=== PATIENT | female | born 1940 | race Caucasian/White ===

== ENCOUNTER 2024-12-13 13:20 | Outpatient (AMB) | payer MEDICARE, SELFPAY ==
--- NOTE | 2024-12-13 13:24 | A.OFFVIS_ITS ---
Vital Signs 12/13/24 13:26 Height 5 ft 1 in Weight 155 lb 6.814 oz BMI 29.4 BP 80/42 L Blood Pressure Location Lt brachial Position Sitting Pulse 90 Pulse Source Pulse Oximeter Pulse Oximetry (%) 93 Oxygen Delivery Method Nasal Cannula Oxygen Flow Rate 4 Intake Visit Reasons: COPD Allergies No Known Allergies Allergy (Verified 12/13/24 13:30) HPI Comments Details: The patient is here for pulmonary evaluation. The patient is a 84 year woman with known history of carcinoid, COPD emphysema, chronic respiratory failure on oxygen who has had multiple bouts of pneumonia. He she was last admitted to [facility] back early November 2024. At that point she did have a CTA which I personally reviewed demonstrating extensive emphysema bilaterally in addition to airspace disease both in the left upper lobe and also left lower lobe. She was treated with antibiotics and she was discharged to rehab. She also had pulmonary nodules largest 1 measuring more than a cm in size. She does have history of carcinoid and she follows closely with oncology and currently on therapy for that. She has not had to know if the nodular densities are carcinoid related. In addition to this the patient does use oxygen. She does use a portable oxygen concentrator that works well for her. She is starting to walk a little bit more but otherwise she has a scooter that she uses to get around. As far as inhalers he has been on Symbicort and Spiriva for a long time. But they seem to be working well for her. She does have a nebulizer which she needs to start using for chest physical therapy and I will provide her with an Acapella valve to help her also with chest PT and mucus clearance to minimize mucus plugging and infections. The patient will have a repeat CT scan to follow-up with the nodular densities in the pneumonia prior to her follow-up. She will start azithromycin 3 times a week for chronic macrolide suppression therapy and if she still congested making mucus she will provide us with a sputum culture. The patient also will get an EKG after a few weeks off the macrolide therapy. [facility] Medical History (Updated 12/13/24 @ 23:47 by Han Turcios MD) Chronic respiratory failure Acute on chronic respiratory failure with hypoxia and hypercapnia COPD (chronic obstructive pulmonary disease) Pneumonia Pulmonary nodule 1 cm or greater in diameter Social History (Updated 12/13/24 @ 13:30 by Sabi Gaines CMA) Patient Tobacco Use Status: Former Tobacco user Review of Systems Const Reports fatigue ENT Reports no additional complaints Card Denies chest pain, Reports dyspnea and Reports dyspnea on exertion Resp Reports cough, Reports dyspnea, Reports dyspnea on exertion and Reports wheezing GI Denies abdominal pain Musc Reports no additional complaints and Reports abnormal gait Skin/Breast Denies rash Neuro Reports abnormal gait Endo Reports fatigue José/Lymph Reports no additional complaints Aller/Immun Reports wheezing Physical Exam Vital Signs: Last Vital Signs Pulse 90 12/13/24 13:26 BP 80/42 L 12/13/24 13:26 Pulse Ox 93 12/13/24 13:26 Oxygen Delivery Method Nasal Cannula 12/13/24 13:26 Oxygen Flow Rate 4 12/13/24 13:26 BMI result Body Mass Index 29.4 Const General: comfortable HEENT Head: Yes normocephalic Neck Neck: Yes supple Chest Chest palpation & inspection: normal inspection of the chest Resp Effort & Inspection: normal respiratory effort and prolonged expiratory phase Auscultation: diminished lung sounds Cardio Heart sounds: S1 normal heart sound present and S2 normal heart sound present GI Palpation (GI): Soft to palpation Skin General skin exam: no rashes or lesions noted Extrem General: Yes clubbing and No cyanosis Results Reviewed Results Reviewed: personally reviewed CTA 11/2024 with extensive emphysema and extensive PNA, multiple nodules, one >1cm Assessment & Plan Assessment & Plan (1) Pulmonary nodule 1 cm or greater in diameter: Code(s): R91.1 - Solitary pulmonary nodule Category: Medical (2) Pneumonia: Code(s): J18.9 - Pneumonia, unspecified organism Category: Medical Qualifiers: Pneumonia type: due to unspecified organism Laterality: left Lung location: unspecified part of lung Qualified Code(s): J18.9 - Pneumonia, unspecified organism (3) COPD (chronic obstructive pulmonary disease): Code(s): J44.9 - Chronic obstructive pulmonary disease, unspecified Category: Medical Qualifiers: COPD type: emphysema Emphysema type: centrilobular Qualified Code(s): J43.2 - Centrilobular emphysema (4) Chronic respiratory failure: Code(s): J96.10 - Chronic respiratory failure, unspecified whether with hypoxia or hypercapnia Category: Medical Qualifiers: Respiratory failure complication: hypoxia and hypercapnia Qualified Code(s): J96.11 - Chronic respiratory failure with hypoxia; J96.12 - Chronic respiratory failure with hypercapnia Plan continue Symbicort and Spiriva MARCIE as needed Start Xopenex nebs BID and followed by CPT with acapella valve CT chest 2 months start Azithromycin MWF EKG Sputum cx F/U 2-3 months Orders: Orders CT chest wo IV con 10 Weeks J18.9 - Pneumonia, unspecified organism, R91.1 - Solitary pulmonary nodule ECG 12 lead EKG Today J44.9 - Chronic obstructive pulmonary disease, unspecified Sputum Cult + Gram stain Today R91.1 - Solitary pulmonary nodule Medications: New levalbuterol HCl 1.25 mg (3 mL) inhalation BID 180 mL 0RF 30 days J44.9 - Chronic obstructive pulmonary disease, unspecified azithromycin Take 1 tablet on Friday/Friday/Friday 250 mg PO 3XW 12 tabs 6RF 28 days K21.9 - Gastro-esophageal reflux disease without esophagitis Coding Level of Care Code New Pt Level 5 (38447) Diagnoses Pulmonary nodule 1 cm or greater in diameter R91.1 Pneumonia of left lung due to infectious organism, unspecified part of lung J18.9 Pneumonia type: due to unspecified organism Laterality: left Lung location: unspecified part of lung Centrilobular emphysema J43.2 COPD type: emphysema Emphysema type: centrilobular Chronic respiratory failure with hypoxia and hypercapnia J96.11; J96.12 Respiratory failure complication: hypoxia and hypercapnia Time Spent (min) 60
[2024-12-13 13:26] VITALS: BP 80/42; PULSE 90; O2SAT 93; BMI 29.4
== END 2024-12-13 14:09 | disposition home or self-care (01) ==
LOC: HO.HPS 13:20
PROVIDERS: PCP Family Medicine; Referring Provider Family Medicine; Visit Provider Hospitalist
DX: J43.2 Centrilobular emphysema (principal); R91.1 Solitary pulmonary nodule; J18.9 Pneumonia, unspecified organism; J96.11 Chronic respiratory failure with hypoxia; J96.12 Chronic respiratory failure with hypercapnia
CPT/HCPCS: 99205

== ENCOUNTER → 2024-12-13 13:20 | Outpatient (BNVA) | payer MEDICARE, SELFPAY | PROVIDERS: PCP Family Medicine; Referring Provider Family Medicine; Visit Provider Hospitalist | DX: J43.2 Centrilobular emphysema (principal); R91.1 Solitary pulmonary nodule; J18.9 Pneumonia, unspecified organism; J96.11 Chronic respiratory failure with hypoxia; J96.12 Chronic respiratory failure with hypercapnia; K21.9 Gastro-esophageal reflux disease without esophagitis; Z99.81 Dependence on supplemental oxygen | CPT/HCPCS: 99202 ==

== ENCOUNTER 2025-02-28 14:40 | Outpatient (AMB) | payer MEDICARE, SELFPAY ==
[2025-02-28 14:43] VITALS: BP 120/60; PULSE 87; O2SAT 94
--- NOTE | 2025-02-28 14:43 | A.OFFVIS_ITS ---
Vital Signs 02/28/25 14:43 Height 5 ft 1 in BMI Reason not done Patient refused/unable BP 120/60 Blood Pressure Location Lt brachial Position Sitting Pulse 87 Pulse Source Pulse Oximeter Pulse Oximetry (%) 94 Oxygen Delivery Method Nasal Cannula Oxygen Flow Rate 3 Intake Visit Reasons: COPD Allergies No Known Allergies Allergy (Verified 02/28/25 14:46) HPI Comments Details: The patient is a 84 year woman with known history of carcinoid, COPD emphysema, chronic respiratory failure on oxygen who has had multiple bouts of pneumonia. He she was last admitted to [facility] back early November 2024. At that point she did have a CTA which I personally reviewed demonstrating extensive emphysema bilaterally in addition to airspace disease both in the left upper lobe and also left lower lobe. She was treated with antibiotics and she was discharged to rehab. She also had pulmonary nodules largest 1 measuring more than a cm in size. She does have history of carcinoid and she follows closely with oncology and currently on therapy for that. She has not had to know if the nodular densities are carcinoid related. In addition to this the patient does use oxygen. She does use a portable oxygen concentrator that works well for her. She is starting to walk a little bit more but otherwise she has a scooter that she uses to get around. As far as inhalers he has been on Symbicort and Spiriva for a long time. But they seem to be working well for her. She does have a nebulizer which she needs to start using for chest physical therapy and I will provide her with an Acapella valve to help her also with chest PT and mucus clearance to minimize mucus plugging and infections. The patient will have a repeat CT scan to follow-up with the nodular densities in the pneumonia prior to her follow-up. She will start azithromycin 3 times a week for chronic macrolide suppression therapy and if she still congested making mucus she will provide us with a sputum culture. The patient also will get an EKG after a few weeks off the macrolide therapy. 02/28/2025 the patient is here for a pulmonary follow-up visit. Overall she is doing better. Her cough is significantly improved. She has been tolerating the azithromycin 3 times a week. She is coming up to the another prescription this month and she can stop it after that. She will continue with respiratory medicines. If she notices the respiratory symptoms worsens she can always call me and I can send her a new script. The patient now is feeling little bit better so will go ahead and request pulmonary function studies to assess her lung capacity. As far as imaging studies she does not have to get any imaging study till the spring when she needs another CAT scan to follow up her pulmonary nodules with a history of carcinoid. Will follow-up after her PFTs in 3-4 months if she has any issues prior to that she will call for an earlier assessment. [facility] Medical History (Updated 12/13/24 @ 23:47 by Han Turcios MD) Chronic respiratory failure Acute on chronic respiratory failure with hypoxia and hypercapnia COPD (chronic obstructive pulmonary disease) Pneumonia Pulmonary nodule 1 cm or greater in diameter Social History (Updated 12/13/24 @ 13:30 by Sabi Gaines CMA) Patient Tobacco Use Status: Former Tobacco user Review of Systems Const Reports fatigue ENT Reports no additional complaints Card Denies chest pain, Reports dyspnea and Reports dyspnea on exertion Resp Reports cough, Reports dyspnea, Reports dyspnea on exertion and Reports wheezing GI Denies abdominal pain Musc Reports no additional complaints and Reports abnormal gait Skin/Breast Denies rash Neuro Reports abnormal gait Endo Reports fatigue José/Lymph Reports no additional complaints Aller/Immun Reports wheezing Physical Exam Vital Signs: Last Vital Signs Pulse 87 02/28/25 14:43 BP 120/60 02/28/25 14:43 Pulse Ox 94 02/28/25 14:43 Oxygen Delivery Method Nasal Cannula 02/28/25 14:43 Oxygen Flow Rate 3 02/28/25 14:43 Const General: comfortable HEENT Head: Yes normocephalic Neck Neck: Yes supple Chest Chest palpation & inspection: normal inspection of the chest Resp Effort & Inspection: normal respiratory effort Auscultation: diminished lung sounds Cardio Heart sounds: S1 normal heart sound present and S2 normal heart sound present GI Palpation (GI): Soft to palpation Skin General skin exam: no rashes or lesions noted Extrem General: Yes clubbing and No cyanosis Assessment & Plan Assessment & Plan (1) Pulmonary nodule 1 cm or greater in diameter: Code(s): R91.1 - Solitary pulmonary nodule Category: Medical (2) Pneumonia: Code(s): J18.9 - Pneumonia, unspecified organism Category: Medical Qualifiers: Laterality: left Lung location: unspecified part of lung Pneumonia type: due to unspecified organism Qualified Code(s): J18.9 - Pneumonia, unspecified organism (3) COPD (chronic obstructive pulmonary disease): Code(s): J44.9 - Chronic obstructive pulmonary disease, unspecified Category: Medical Qualifiers: COPD type: emphysema Emphysema type: centrilobular Qualified Code(s): J43.2 - Centrilobular emphysema (4) Chronic respiratory failure: Code(s): J96.10 - Chronic respiratory failure, unspecified whether with hypoxia or hypercapnia Category: Medical Qualifiers: Respiratory failure complication: hypoxia and hypercapnia Qualified Code(s): J96.11 - Chronic respiratory failure with hypoxia; J96.12 - Chronic respiratory failure with hypercapnia Plan continue Symbicort and Spiriva MARCIE as needed Xopenex nebs BID and followed by CPT with acapella valve CT chest 12/2025 Azithromycin MWF complete F/U 64 months Orders: Orders PFT pulmonary function test 2 Months J43.2 - Centrilobular emphysema Coding Level of Care Code Est Pt Level 4 (89274) Complex EM visit Add On G2211 Diagnoses Pulmonary nodule 1 cm or greater in diameter R91.1 Pneumonia of left lung due to infectious organism, unspecified part of lung J18.9 Laterality: left Lung location: unspecified part of lung Pneumonia type: due to unspecified organism Centrilobular emphysema J43.2 COPD type: emphysema Emphysema type: centrilobular Chronic respiratory failure with hypoxia and hypercapnia J96.11; J96.12 Respiratory failure complication: hypoxia and hypercapnia Time Spent (min) 16
--- OUTSIDE RECORDS SUMMARY | 2025-02-28 15:57 | XMS_ITS | Data Portability ---
Author Organization [place] - [facility], [employer] Address [address] [place] [address] Care Team Providers Care Performance Improvement Manager Name Role Phone EVELIN MAJANO Primary Care Provider Assessment Encounter Date Assessment Date Assessment LastModified by Organization Details LastModified Time 09/20/2024 09/20/2024 Assessment - Possible tendon tear in the right ankle, not suspected to be fractured. - Elevated blood pressure, possibly related to pain. - Heartburn with chest pain, differential diagnosis includes potential cardiac issues. - Breathing difficulties, warranting further evaluation. Plan - Continue applying ice packs to the ankle at night to manage swelling and discomfort. Monitor the condition and report any significant changes. - Proceed with blood work to evaluate current health status, particularly in relation to blood sugar levels. - Transition to taking Mounjaro instead of Trulicity for diabetes management, as Mounjaro is considered a better option. - Schedule a follow-up appointment in one month to review blood work results and assess overall health progress. - Provide the name of the competitive intelligence analyst to the office for referral purposes once it is remembered. Appointments - Follow-up appointment in one month to review blood work results. [email or web address] Not available 09/20/2024 15:49:53 11/11/2024 11/11/2024 16 minutes spent discussing advanced care planning, including time spent with paperwork and documentation related to MOLST, Health Care Proxy, discussion of palliative and end of life wishes. Assessment - Esophageal strictures may require dilation, as indicated by dysphagia with certain foods. - Possible venous insufficiency contributing to purple discoloration and numbness in toes and ankles. Plan - Maintain current dose of injectable medication for now, as it is working well and to avoid potential side effects. Consider increasing the dose in the future if necessary. - Referral to Dr. Adorno for vision evaluation. Schedule an appointment with Dr. Adorno, located on [facility], for vision-related concerns. No referral needed with current insurance. - Ensure follow-up with Dr. Leyva regarding esophagus issues. There may be a need for another endoscopy to address strictures. - Schedule a four-month follow-up appointment for annual evaluation. - Provide healthcare proxy form for review and update. Consider updating the healthcare proxy to ensure appropriate representation. Appointments - Appointment with oncologist at the beginning of next month - Follow-up with Dennise in November - Referral to Dr. Adorno on [facility] for vision evaluation - Follow-up appointment with md in four months for annual check-up [email or web address] Not available 11/11/2024 13:09:16 12/08/2024 12/08/2024 Assessment - Blood pressure is well controlled with current medication and salt intake. - Weight loss potentially related to swallowing difficulties and recent medication change to Mounjaro. - Swallowing issues possibly due to esophageal stricture, may require endoscopic intervention. - Recent pneumonia and COPD exacerbation, with ongoing cough and mucus production. - Anemia being managed with B12 shots and potential need for further intervention. - Possible urinary tract infection, monitoring with cranberry pills. Plan - Schedule an appointment for another endoscopy to address swallowing issues and potential esophageal stricture. - Monitor weight loss and ensure adequate nutrition and hydration, especially considering swallowing difficulties. Encourage intake of liquids and foods that are easier to swallow. - Use cranberry pills as a preventive measure for urinary tract infections, avoiding cranberry juice due to its sugar content. - Monitor breathing and mucus production, particularly in the mornings and evenings, to assess recovery from pneumonia and COPD exacerbation. - Follow up with the competitive intelligence analyst to address any ongoing respiratory concerns and ensure proper management of breathing issues. Appointments - Follow-up appointment with competitive intelligence analyst on December 09, 2024 - B12 shot appointment with oncology on December 09, 2024 [email or web address] Not available 12/08/2024 09:31:46 12/16/2024 12/16/2024 This visit is being performed by Emerald Alanis RN under the direct supervision of Evelin Majano DO and they are physically present in the office and available for immediate consultation. The treatment plan was determined by the supervising provider. Assessment -EKG performed in office today, NSR per Dr Majano, will fax results to Pulm as they are ordering priovider Appointments - Appointment with pulmonology on Friday [email or web address] Not available 12/16/2024 14:58:24 02/03/2025 02/03/2025 The patient was advised to continue a healthy diet and exercise regularly. Preventative care discussed in detail. Eight minutes spent on each counselling about depression, alcohol, obesity, and cardiovascular health. Further preventative care counselling discussed as documented below. 8 Minutes spent on counseling primary and/or secondary prevention of cardiovascular disease, including aspirin use if necessary, and healthy diet. Documented 5 A s approach. (obesity diagnosis added to A/P) 8 Minutes spent on intensive obesity counseling, including review of measured BMI, and nutritional assessment with behavioral therapy to promote weight loss. Documented 5 A s approach. (Not for an established diagnosis - this is primary prevention counseling services) Preventative counseling performed in absence of a diagnosis or problem for appropriate diet and exercise for a total of 8 minutes. Detailed documentation using the 5A s approach. Assessment - Tendonitis in the ankle, likely due to chronic inflammation in the ankle joint. - Weight loss potentially related to the use of Mounjaro medication. - Constipation possibly related to nerve issues associated with metastatic cancer, but no bowel obstruction present. Plan - Recommend taking Senna as needed to help with constipation. Senna is suggested to increase muscle tone and movements in the gut, aiding in stool passage. It is advised to take two tablets daily alongside prune juice to evaluate its effectiveness. - Continue daily consumption of prune juice to assist with bowel movements. - Follow up with Dr. Bowden for scheduled CAT scans and blood work to monitor any potential cancer-related issues contributing to weight loss. Prescription - Senna, two tablets daily, as needed for constipation. Appointments - Follow-up appointment with Dr. Bowden for CT scans and blood work [email or web address] Not available 02/03/2025 12:47:27 Plan of Treatment Reminders Order Date Submit Date Provider Last Modified By Organization Details Last Modified Time Details Appointments FOLLOW UP 2024 01:00P M Evelin Majano, DO Not available Not available Not available Lab BNP (B-type natriuret ic peptide), serum or plasma 2024 025 JAYCEE [facility], [address] [facility], [place], [address], 09/22/2024 16:06:49 HbA1c (hemoglob in A1c), blood 2024 025 [facility], [address], [place], [address], 09/22/2024 16:06:48 CMP, serum or plasma 2024 025 [facility], [address], [place], [address], 09/22/2024 16:06:47 CBC w/ auto diff 2024 025 [facility], [address] [facility] [place], [address], 09/22/2024 16:06:46 lipid panel, serum 2024 025 [facility], [address], [place], [address], 09/22/2024 16:06:48 iron + TIBC + ferritin, serum 2024 025 [facility], [address], [place], [address], 09/22/2024 16:06:46 Referral ophthalmo logist referral - needs yearly diabetic eye exams 2024 025 [email or web address] Fredis Adorno MD, [address] [place], [address], 11/16/2024 19:34:41 Procedures None recorded. Surgeries None recorded. Imaging electroca rdiogram 2024 025 [email or web address] Main Office, [address] [place] [address], [address], [place], [address], 12/18/2024 14:58:22 Medication Orders senna 8.6 mg tablet 2024 025 [id number], [address] [place] [address], [id number], 02/03/2025 12:46:36 tramadol 50 mg tablet 2024 025 JAYCEE [id number], [address], [place], [id number], 02/17/2025 05:56:29 Patient TargetsNo targets recorded. Patient InstructionsNo instructions recorded. Reason for Referral Floor Layer Referral for Uncontrolled type 2 diabetes mellitus needs yearly diabetic eye exams Referring Physician: Evelin Majano, Family Medicine, Encounter Date: 11/11/2024 Results Created Date Observation Date Name Description Value Unit Range Abnormal Flag Note LastModifiedBy Organization Detail LastModifiedTime 09/21/1909/22/2024 FE+TI BC+FE R iron bind.cap.(TI BC) 465 ug/dL 250-45 0 above high normal Not Available [facility] ([facility]) [address] [place], [address], 09/22/2024 16:06:46 09/21/19 25 09/22/2024 FE+TI BC+FE R UIBC 422 ug/dL 118-36 9 above high normal Not Available [facility] ([facility]) [address] [place], [address], 09/22/2024 16:06:46 09/21/19 25 09/22/2024 FE+TI BC+FE R iron 43 ug/dL 27-139 normal Not Available [facility] ([facility]) [address] [place], [address], 09/22/2024 16:06:46 09/21/19 25 09/22/2024 FE+TI BC+FE R iron saturation 9 % 15-55 alert low Not Available [facility]) [address] [place], [address], 09/22/2024 16:06:46 09/21/19 25 09/22/2024 FE+TI BC+FE R ferritin 23 NG/mL 15-150 normal Not Available [facility] ([facility]) [address] [place], [address], 09/22/2024 16:06:46 09/21/19 25 09/22/2024 CBC WITH DIFFE RENTI AL/PL ATELE T WBC 6.7 x10e3 /uL 3.4-10 .8 normal Not Available [facility] ([facility]) [address] [place], [address], 09/22/2024 16:06:46 09/21/19 25 09/22/2024 CBC WITH DIFFE RENTI AL/PL ATELE T RBC 3.14 x10e6 /uL 3.77-5 .28 below low normal Not Available [facility] ([facility]) [address] [place], [address], 09/22/2024 16:06:46 09/21/19 25 09/22/2024 CBC WITH DIFFE RENTI AL/PL ATELE T hemoglobin 8.7 g/dL 11.1-1 5.9 below low normal Not Available [facility] ([facility]) [address] [place], [address], 09/22/2024 16:06:46 09/21/19 25 09/22/2024 CBC WITH DIFFE RENTI AL/PL ATELE T hematocrit 28.9 % 34.0-4 6.6 below low normal Not Available [facility] ([facility]) [address] [place], [address], 09/22/2024 16:06:46 09/21/19 25 09/22/2024 CBC WITH DIFFE RENTI AL/PL ATELE T MCV 92 fL 79-97 normal Not Available [facility] ([facility]) [address] [place], [address], 09/22/2024 16:06:46 09/21/19 25 09/22/2024 CBC WITH DIFFE RENTI AL/PL ATELE T MCH 27.7 pg 26.6-3 3.0 normal Not Available [facility] ([facility]) [address] [place], [address], 09/22/2024 16:06:46 09/21/19 25 09/22/2024 CBC WITH DIFFE RENTI AL/PL ATELE T MCHC 30.1 g/dL 31.5-3 5.7 below low normal Not Available [facility] ([facility]) [address] [place], [address], 09/22/2024 16:06:46 09/21/19 25 09/22/2024 CBC WITH DIFFE RENTI AL/PL ATELE T RDW 16.8 % 11.7-1 5.4 above high normal Not Available [facility] ([facility]) [address] [place], [address], 09/22/2024 16:06:46 09/21/19 25 09/22/2024 CBC WITH DIFFE RENTI AL/PL ATELE T platelets 223 x10e3 /uL 150-45 0 normal Not Available [facility] ([facility]) [address] [place], [address], 09/22/2024 16:06:46 09/21/19 25 09/22/2024 CBC WITH DIFFE RENTI AL/PL ATELE T neutrophils 62 % not estab. normal Not Available [facility] ([facility]) [address] [place], [address], 09/22/2024 16:06:46 09/21/19 25 09/22/2024 CBC WITH DIFFE RENTI AL/PL ATELE T lymphs 26 % not estab. normal Not Available [facility] ([facility]) [address] [place], [address], 09/22/2024 16:06:46 09/21/19 25 09/22/2024 CBC WITH DIFFE RENTI AL/PL ATELE T monocytes 10 % not estab. normal Not Available [facility] ([facility]) [address] [place], [address], 09/22/2024 16:06:46 09/21/19 25 09/22/2024 CBC WITH DIFFE RENTI AL/PL ATELE T eos 1 % not estab. normal Not Available [facility] ([facility]) [address] [place], [address], 09/22/2024 16:06:46 09/21/19 25 09/22/2024 CBC WITH DIFFE RENTI AL/PL ATELE T basos 0 % not estab. normal Not Available [facility] ([facility]) [address] [facility], [place], [address], 09/22/2024 16:06:46 09/21/19 25 09/22/2024 CBC WITH DIFFE RENTI AL/PL ATELE T immature cells LEAD SIMULATION MODELING ENGINEER Not Available [facility] ([facility]) [address] [place], [address], 09/22/2024 16:06:46 09/21/19 25 09/22/2024 CBC WITH DIFFE RENTI AL/PL ATELE T neutrophils (absolute) 4.2 x10e3 /uL 1.4-7. 0 normal Not Available [facility] ([facility]) [address] [place], [address], 09/22/2024 16:06:46 09/21/19 25 09/22/2024 CBC WITH DIFFE RENTI AL/PL ATELE T lymphs (absolute) 1.7 x10e3 /uL 0.7-3. 1 normal Not Available [facility] ([facility]) [address] [place], [address], 09/22/2024 16:06:46 09/21/19 25 09/22/2024 CBC WITH DIFFE RENTI AL/PL ATELE T monocytes(ab solute) 0.6 x10e3 /uL 0.1-0. 9 normal Not Available [facility] ([facility]) [address] [facility], [place], [address], 09/22/2024 16:06:46 09/21/19 25 09/22/2024 CBC WITH DIFFE RENTI AL/PL ATELE T eos (absolute) 0.1 x10e3 /uL 0.0-0. 4 normal Not Available [facility] ([facility]) [address] [facility], [place], [address], 09/22/2024 16:06:46 09/21/19 25 09/22/2024 CBC WITH DIFFE RENTI AL/PL ATELE T baso (absolute) 0.0 x10e3 /uL 0.0-0. 2 normal Not Available [facility] ([facility]) [address] [facility], [place], [address], 09/22/2024 16:06:46 09/21/19 25 09/22/2024 CBC WITH DIFFE RENTI AL/PL ATELE T immature granulocytes 1 % not estab. Not Available [facility] ([facility]) [address] [facility], [place], [address], 09/22/2024 16:06:46 09/21/19 25 09/22/2024 CBC WITH DIFFE RENTI AL/PL ATELE T immature grans (abs) 0.0 x10e3 /uL 0.0-0. 1 Not Available [facility] ([facility]) [address] [facility], [place], [address], 09/22/2024 16:06:46 09/21/19 25 09/22/2024 CBC WITH DIFFE RENTI AL/PL ATELE T NRBC LEAD SIMULATION MODELING ENGINEER Not Available [facility] ([facility]) [address] [facility], [place], [address], 09/22/2024 16:06:46 09/21/19 25 09/22/2024 CBC WITH DIFFE RENTI AL/PL ATELE T hematology comments: LEAD SIMULATION MODELING ENGINEER Not Available [facility] ([facility]) [address] [facility] [place], [address], 09/22/2024 16:06:46 09/21/19 25 09/22/2024 COMP. METAB OLIC PANEL (14) glucose 92 mg/dL 70-99 normal Not Available [facility] ([facility]) [address] [facility] [place], [address], 09/22/2024 16:06:47 09/21/19 25 09/22/2024 COMP. METAB OLIC PANEL (14) BUN 28 mg/dL 8-27 above high normal Not Available [facility] ([facility]) [address] [facility] [place], [address], 09/22/2024 16:06:47 09/21/19 25 09/22/2024 COMP. METAB OLIC PANEL (14) creatinine 1.00 mg/dL 0.57-1 .00 normal Not Available [facility] ([facility]) [address] [facility] [place], [address], 09/22/2024 16:06:47 09/21/19 25 09/22/2024 COMP. METAB OLIC PANEL (14) eGFR 56 mL/mi n/1.7 3 >59 below low normal Not Available [facility] ([facility]) [address] [place], [address], 09/22/2024 16:06:47 09/21/19 25 09/22/2024 COMP. METAB OLIC PANEL (14) BUN/creatini ne ratio 28 12-28 normal Not Available [facility] ([facility]) [address] [place], [address], 09/22/2024 16:06:47 09/21/19 25 09/22/2024 COMP. METAB OLIC PANEL (14) sodium 148 mmol/ L 134-14 4 above high normal Not Available [facility] ([facility]) [address] [place], [address], 09/22/2024 16:06:47 09/21/19 25 09/22/2024 COMP. METAB OLIC PANEL (14) potassium 4.2 mmol/ L 3.5-5. 2 normal Not Available [facility] ([facility]) [address] [place], [address], 09/22/2024 16:06:47 09/21/19 25 09/22/2024 COMP. METAB OLIC PANEL (14) chloride 108 mmol/ L 96-106 above high normal Not Available [facility] ([facility]) [address] [place], [address], 09/22/2024 16:06:47 09/21/19 25 09/22/2024 COMP. METAB OLIC PANEL (14) carbon dioxide, total 22 mmol/ L 20-29 normal Not Available [facility] ([facility]) [address] [facility] [place], [address], 09/22/2024 16:06:47 09/21/19 25 09/22/2024 COMP. METAB OLIC PANEL (14) calcium 9.9 mg/dL 8.7-10 .3 normal Not Available [facility] ([facility]) [address] [facility] [place], [address], 09/22/2024 16:06:47 09/21/19 25 09/22/2024 COMP. METAB OLIC PANEL (14) protein, total 6.5 g/dL 6.0-8. 5 normal Not Available [facility] ([facility]) [address] [facility] [place], [address], 09/22/2024 16:06:47 09/21/19 25 09/22/2024 COMP. METAB OLIC PANEL (14) albumin 4.3 g/dL 3.7-4. 7 normal Not Available [facility] ([facility]) [address] [facility] [place], [address], 09/22/2024 16:06:47 09/21/19 25 09/22/2024 COMP. METAB OLIC PANEL (14) globulin, total 2.2 g/dL 1.5-4. 5 Not Available [facility] ([facility]) [address] [facility] [place], [address], 09/22/2024 16:06:47 09/21/19 25 09/22/2024 COMP. METAB OLIC PANEL (14) bilirubin, total 0.3 mg/dL 0.0-1. 2 normal Not Available [facility] ([facility]) [address] [facility] [place], [address], 09/22/2024 16:06:47 09/21/19 25 09/22/2024 COMP. METAB OLIC PANEL (14) alkaline phosphatase 106 IU/L 44-121 normal Not Available [facility] [address] [facility] [place], [address], 09/22/2024 16:06:47 09/21/19 25 09/22/2024 COMP. METAB OLIC PANEL (14) AST (SGOT) 16 IU/L 0-40 normal Not Available [facility] ([facility]) [address] [facility] [place], [address], 09/22/2024 16:06:47 09/21/19 25 09/22/2024 COMP. METAB OLIC PANEL (14) ALT (SGPT) 10 IU/L 0-32 normal Not Available [facility] ([facility]) [address] [facility] [place], [address], 09/22/2024 16:06:47 12/17/19 25 elect rocar diogr am No observ ation record ed. [email or web address] Not Available 2024 12:45:02 12/19/19 25 elect rocar diogr am No observ ation record ed. [email or web address] Main Office [address] [place] [address] [address], [place], [address], 12/18/2024 14:58:20 Result Notes None recorded. 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 Evelin Majano, [address], [place] [address], [place], [place], 1, [place] [facility] 09:44:39 History of pulmonary embolus 664646844 Active 2021 Evelin Majano [address], [place] [address], [place] g[place], 1, [place] [facility] 09:44:41 Type 2 diabetes mellitus without complicatio n 004175411 Active 2021 Patrick Santa null, [place] [facility] 10:14:47 Tobacco dependence in remission 949972602 Active 2021 Evelin Majano [address], [place] [address], [place] gonzalez [place], 1, [place] [facility] 10:29:10 Pain of right shoulder joint 4096173842339 9100 Active 2021 Evelin Majano [address], [place] [address], [place] gonz[place], 1, [place] [facility] 10:29:12 Mixed hyperlipide trudy 782222888 Active 2021 Evelin Majano [address], [facility] [address], [place] gonz[place], 1, [place] [facility] 2 10:29:14 Urge incontinenc e of urine 17139180 Active 2021 Evelin Majano [address], [facility] [address], [place] gonzalez [place], 1, [place] [facility] 2 10:29:17 Chronic hypoxemic respiratory failure 396773707 Active 2021 Evelin Majano [address], [facility] [address], [place], [address], [place] [facility] 2 10:29:38 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 Evelin Majano DO [address] [place] [address] [address], [place], [address], [place] [facility] 11:56:29 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 Evelin Majano DO [address] [place] [address] [address], [place], [address], [place] [facility] 2 11:52:21 Severe chronic obstructive pulmonary disease 622838194 Active 2021 Evelin Majano DO [address] [place] [address] [address], [place], [address], [place] [facility] 2 11:52:22 Uncontrolle d type 2 diabetes mellitus 603146328 Active 2024 Evelin Majano DO [address] [place] [address] [address], [place], [place], [address], [place] [facility] 5 12:57:44 Community acquired pneumonia 810356938 Active 2024 Aliyah Clubb, LEAD SIMULATION MODELING ENGINEER [address] [place] [address] [address], [place] gonz[place], [place], [address], [place] [facility] 09:21:13 Dysphagia 94361213 Active 2024 Aliyah Clubb, LEAD SIMULATION MODELING ENGINEER [address] [place] [address] [address], [place] g[place], [place], [address], [place] [facility] 09:21:36 Nutritional anemia 78293697 Active 2024 Aliyah Clubb, LEAD SIMULATION MODELING ENGINEER [address] [place] [address] [address], [place] g[place], [place], [address], [place] [facility] 09:22:05 Problem Notes None recorded. Procedures Surgical History Date Name Laterality Status Provider Name and Address Organization Details Recorded Time 3 Shave Biopsy completed Evelin Majano DO [address] [facility], [facility] [address], [place], [address], [place] [facility] 04/14/2023 12:04:04 3 Cryosurgery Warts/Skin Tags completed Evelinjemma Majano, DO [address] [facility] [address], [place], [address], [place] [facility] 12/21/2022 17:14:53 1 Date of Last Colonoscopy completed Sherri Prieto [place] [facility] 01/28/2025 10:52:25 1 Colonoscopy completed [facility] 01/28/2025 10:52:36 Imaging Results None recorded. Procedure Notes None recorded. Medical Equipment None Reported. Allergies No known drug allergies Medications Name Sig Start Date Stop Date Status Note LastModified by Organization Details LastModified Time lidocaine 2% mylanta TAKE 10CC BY MOUTH THREE TIMES DAILY BEFORE MEAL AND AT BEDTIME FOR 7 DAYS 07/13 completed Not Available Not Available Not Available metformin 500 mg tablet Oral for 90 active Not Available Not Available No t Available albuterol sulfate 0.63 mg/3 mL solution for nebulizat ion active Not Available Not Available Not Available albuterol sulfate 2.5 mg/3 mL (0.083 %) solution for nebulizat ion Inhale 3 mL 3 times a day by nebuliza tion route as needed for 30 days. 09/16 completed Not Available Not Available Not Available azithromy marvin 250 mg tablet TAKE 1 TABLET BY MOUTH DAILY FOR 3 DAYS active Not Available Not Available No t Available pravastat in 40 mg tablet TAKE 1 TABLET BY MOUTH DAILY AT BEDTIME active Not Available Not Available No t Available senna 8.6 mg tablet TAKE 2 TABLETS BY MOUTH EVERY DAY active Not Available Not Available No t Available FreeStyle Lancets 28 gauge USE DIRECTED TO CHECK BLOOD SUGAR IN THE AM AND BEFORE MEALS FOUR TIMES DAILY active Not Available Not Available No t Available prednison e 20 mg tablet TAKE 2 TABLETS BY MOUTH DAILY FOR 3 DAYS 12/08 completed Not Available Not Available Not Available alendrona te 70 mg tablet Oral for 84 active Not Available Not Available No t Available dexametha sone 6 mg tablet TAKE 1 TABLET BY MOUTH TWICE DAILY FOR 3 DAYS 09/16 completed Not Available Not Available Not Available aspirin 81 mg tablet,de layed release Take 1 tablet every day by oral route. active Not Available Not Available No t Available tramadol 50 mg tablet Take 1 tablet twice a day by oral route as needed for 7 days. 02/17 completed 12/03/19 Tramadol Hcl 50 Mg [id number] 7 De Sin Not Available Not Available Not Available oxycodone -acetamin ophen 5 mg-325 mg tablet TAKE 1 TABLET BY MOUTH EVERY 4 HOURS NEEDED FOR PAIN 05/04 completed Not Available Not Available Not Available famotidin e 20 mg tablet TAKE 1 TABLET BY MOUTH DAILY AT BEDTIME 09/16 completed Not Available Not Available Not Available magnesium oxide 400 mg (241.3 mg magnesium ) tablet TAKE 1 TABLET BY MOUTH DAILY FOR 7 DAYS 09/10 completed Not Available Not Available Not Available pantopraz ole 40 mg tablet,de layed release TAKE 1 TABLET BY MOUTH EVERY DAY active Not Available Not Available No t Available lisinopri l 10 mg tablet TAKE 1 TABLET BY MOUTH EVERY DAY 01/15 completed Not Available Not Available Not Available loratadin e 5 mg-pseudo ephedrine ER 120 mg tablet,ex tended release,1 2hr Take 1 tablet every 12 hours by oral route for 30 days. 01/16 completed Not Available Not Available Not Available omeprazol e 20 mg capsule,d elayed release TAKE 1 CAPSULE BY MOUTH TWICE DAILY 08/05 completed Not Available Not Available Not Available levalbute rol 1.25 mg/3 mL solution for nebulizat ion INHALE 3ML TWICE DAILY FOR 30 DAYS 02/03 completed Not Available Not Available Not Available cefuroxim e axetil 500 mg tablet 09/10 completed Not Available Not Available Not Available cefdinir 300 mg capsule TAKE 1 CAPSULE BY MOUTH EVERY 12 HOURS FOR 3 DAYS 12/08 completed Not Available Not Available Not Available fluticaso ne propionat e 50 mcg/actua tion nasal spray,andi pension SHAKE LIQUID AND USE 1 SPRAY IN EACH NOSTRIL TWICE DAILY NEEDED FOR CONGESTI ON 09/16 completed Not Available Not Available Not Available lisinopri l 2.5 mg tablet Oral for 76 09/09 completed Not Available Not Available Not Available loratadin e 10 mg tablet TAKE 1 TABLET BY MOUTH EVERY DAY X 30 DAYS 04/14 completed Not Available Not Available Not Available amoxicill in 875 mg-potass ium clavulana te 125 mg tablet TAKE 1 TABLET BY MOUTH EVERY 12 HOURS FOR 3 DAYS 06/25 completed Not Available Not Available Not Available Ventolin HFA 90 mcg/actua tion aerosol inhaler INHALE 1 PUFF BY MOUTH FOUR TIMES DAILY NEEDED FOR WHEEZING active Not Available Not Available No t Available olmesarta n 40 mg tablet Take 1 tablet every day by oral route. 2024 active Not Available Not Available Not Avai lable azithromy marvin 500 mg tablet TAKE 1 TABLET BY MOUTH EVERY 24 HOURS FOR 2 DAYS 09/10 completed Not Available Not Available Not Available Spiriva with HandiHale r 18 mcg and inhalatio n capsules INHALE THE CONTENTS OF 1 CAPSULE VIA INHALATI ON DEVICE DAILY active Not Available Not Available No t Available albuterol sulfate concentra te 2.5 mg/0.5 mL solution for nebulizat ion Inhale 0.5 mL 3 times a day by nebuliza tion route as needed for 30 days. 09/09 completed Not Available Not Available Not Available Vitamin D3 active Not Available Not Available Not Available Baby Aspirin 01/16 completed Not Available Not Available Not Available Symbicort 160 mcg-4.5 mcg/actua tion HFA aerosol inhaler INHALE 2 PUFFS BY MOUTH TWICE DAILY active Not Available Not Available No t Available Symbicort 80 mcg-4.5 mcg/actua tion HFA aerosol inhaler USE 2 INHALATI ON BY MOUTH TWICE DAILY 03/12 completed Not Available Not Available Not Available peg 3350-elec trolytes 236 gram-22.7 4 gram-6.74 gram-5.86 gram solution TAKE 240ML BY MOUTH EVERY 15 MINUTES 09/10 completed Not Available Not Available Not Available FreeStyle Lite Meter kit USE DIRECTED FOUR TIMES DAILY active Not Available Not Available No t Available FreeStyle Lite Strips USE 1 STRIP FOUR TIMES DAILY active Not Available Not Available No t Available B12 Injectio n 02/03 completed Not Available Not Available Not Available buprenorp naheed 5 mcg/hour weekly transderm al patch Apply 1 patch every week by transder mal route for 28 days. 07/13 completed Please pursue prior auth Not Available Not Available Not Available Eliquis 5 mg tablet TAKE 1 TABLET BY MOUTH TWICE DAILY active Not Available Not Available No t Available Trulicity 0.75 mg/0.5 mL subcutane ous pen injector ADMINIST ER 0.75 MG UNDER THE SKIN 1 TIME WEEKLY 09/20 completed Not Available Not Available Not Available Breo Ellipta 200 mcg-25 mcg/dose powder for inhalatio n 10/30 completed Not Available Not Available Not Available Spiriva Respimat 1.25 mcg/actua tion solution for inhalatio n INHALE 2 PUFFS BY MOUTH EVERY DAY 01/15 completed Not Available Not Available Not Available Readi-Cat 2 2 % (w/v) oral suspensio n REDI CAT FOR CT SCAN TAKE DIRECTED BY OFFICE active Not Available Not Available No t Available Dexcom G6 Fisheries Inspector 08/05 completed Not Available Not Available Not Available albuterol sulf 90 mcg/actua tion breath activated powder inhaler,s ensor Inhale 1 puff 4 times a day by inhalati on route. 12/08 completed Not Available Not Available Not Available mecobalam in (vitamin B12) 10,000 mcg solution for injection Take by injectio n route. active Not Available Not Available No t Available Breztri Aerospher e 160 mcg-9mcg- 4.8mcg/ac tuation HFA aerosol inhaler INHALE 2 PUFFS BY MOUTH TWICE DAILY - RINSE MOUTH AND THROAT AFTER USE 12/16 completed Not Available Not Available Not Available Mounjaro 5 mg/0.5 mL subcutane ous pen injector ADMINIST ER 5 MG UNDER THE SKIN EVERY WEEK active Not Available Not Available No t Available Vitals Date Recorded Body height Oxygen saturation Oxygen saturation in Arterial blood by Pulse oximetry Inhaled oxygen flow rate Heart rate Systolic And Diastolic Provider Name and Address Organization Details Last Updated DateTime 5 154.94 cm 89 % 89 % 2 L/min 74 /min 134/74 mm[Hg] Sherri Galvan [facility] 5 15:13:36 Date Recorded Body height Body mass index (BMI) Body weight Oxygen saturation Oxygen saturation in Arterial blood by Pulse oximetry Inhaled oxygen flow rate Heart rate Systolic And Diastolic Provider Name and Address Organization Details Last Updated DateTime 5 154.94 cm 29.9 kg/m2 31501.5 9 g 96 % 96 % 2 L/min 87 /min 128/72 mm[Hg] Mary daniel [facility] 5 12:41:48 Date Recorded Body height Oxygen saturation Oxygen saturation in Arterial blood by Pulse oximetry Inhaled oxygen flow rate Heart rate Systolic And Diastolic Provider Name and Address Organization Details Last Updated DateTime 5 154.94 cm 97 % 97 % 4 L/min 87 /min 120/66 mm[Hg] Sherri Prieto [facility] 5 08:49:56 Date Recorded Body height Body mass index (BMI) Body weight Oxygen saturation Oxygen saturation in Arterial blood by Pulse oximetry Inhaled oxygen flow rate Heart rate Systolic And Diastolic Provider Name and Address Organization Details Last Updated DateTime 5 154.94 cm 27.8 kg/m2 93413.0 8 g 89 % 89 % 4 L/min 87.01 /min 128/72 mm[Hg] Mary daniel [facility] 5 12:25:51 Social History Question Answer Notes LastModified by [employer]iz[employer] ion Details LastModified Time Tobacco Smoking Status Former Smoker Sherri Prieto [facility] 08/05/2022 09:28:21 Do You Have An Advance Directive? Yes Information not available 12/16/2022 When Did You Quit Smoking? 16+yearssinc elastcigaret te Information not available 03/13/2023 What Was The Date Of Your Most Recent Tobacco Screening? 08/05/2022 Information not available 03/13/2023 How Much Tobacco Do You Smoke? No Information not available 12/16/2022 Sex: Unknown Functional Status Question Answer Note LastModified by Organizat ion Details LastModified Time Do you use any illicit or recreational drugs? No Information not available 01/16/2023 Do you or have you ever used smokeless tobacco? Never used smokeless tobacco Information not available 01/16/2023 Are you currently employed? No Information not available 12/16/2022 Mental Status None recorded. Family History Nothing Reported. Medical History Condition Response Arthritis Y Difficulty Swallowing Y Bladder or Kidney Problems Y Reflux/GERD Y Polyps Y High Cholesterol Y Cancer Y COPD Y Gynecological History Statement/Question Response Date of Last Colonoscopy 02/02/2021 Colonoscopy 02/02/2021 Obstetrics History GPAL:G 0 P 0 0 0 0 Immunizations Vaccine Type Date Status Note Provider Nam andrea and Address Organization Details Recorded Time COVID-19, mRNA, LNP-S, bivalent, PF, 30 mcg/0.3 mL dose 2 completed Sherri Prieto null, [place] [facility] 08/05/2022 09:22:57 Pneumococcal conjugate PCV20, polysaccharide FWB691 conjugate, adjuvant, PF 5 completed Not Available [facility] 02/03/2025 12:16:04 Influenza, high-dose, trivalent, PF 5 completed Sri Veronica null, [place] [facility] 05/02/2022 13:35:29 Tdap 5 completed Sri Veronica [place], [place] [facility] 05/02/2022 13:35:29 Pneumococcal conjugate PCV 13 5 completed Sri Veronica null, [place] [facility] 05/02/2022 13:35:29 Influenza, high-dose, trivalent, PF 4 completed Sri Veronica null, [place] [facility] 05/02/2022 13:35:29 Influenza, adjuvanted, quadrivalent, PF 1 completed Sri Veronica null, [place] [facility] 05/02/2022 13:35:29 COVID-19, mRNA, LNP-S, PF, 30 mcg/0.3 mL dose 1 completed Sri Veronica null, [place] [facility] 05/02/2022 13:35:29 COVID-19, mRNA, LNP-S, PF, 30 mcg/0.3 mL dose 1 completed Sri Veronica null, [place] [facility] 05/02/2022 13:35:29 COVID-19, mRNA, LNP-S, PF, 30 mcg/0.3 mL dose 1 completed Sri Veronica [place], [place] [facility] 05/02/2022 13:35:29 pneumococcal polysaccharide PPV23 7 completed Sri Veronica null, [place] [facility] 05/02/2022 13:35:29 Influenza, high-dose, trivalent, PF 7 completed Srijemma ChampionVeronica null, [place] [facility] 05/02/2022 13:35:29 Influenza, high-dose, trivalent, PF 7 completed Srijemma ChampionVeronica null, [place] [facility] 05/02/2022 13:35:29 Influenza, split virus, quadrivalent, preservative 9 completed Sri Championagne null, [place] [facility] 05/02/2022 13:35:29 zoster live 4 completed Sri Championagne null, [place] [facility] 05/02/2022 13:35:29 Past Encounters Encounter ID Performer Location Encounter Start Date Encounter Closed Date Diagnosis/Indication Diagnosis SNOMED-CT Code Diagnosis ICD10 Code Diagnosis Note [id number] Evelin Majano DO Main Office [address] [place] [address] [address] [place] [address] 09/10/2021 11:25:06 09/10/2021 15:37:29 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 Type 2 loreta betes mellitus without complication 596657668 E11.9 Talked to patient about diet and sugar consumptio n. 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 Likely chronic inflammati on of rotator cuff. Discussed steroid injection but patient would not like one at this time. Tobacco de pendence in remission 659029446 F17.201 patient quit smoking 4 years ago Chronic hy poxemic respiratory failure 678129817 J96.11 [id number] Evelin Majano DO Main Office [address] [place] [address] [address] [place] [address] 05/06/2022 11:08:12 05/06/2022 11:34:44 Chronic hypoxemic respiratory failure 975116106 J96.11 Tobacco de pendence in remission 511886162 F17.201 patient quit smoking 4 years ago Fracture of foot 1183335 5 S92.902D [id number] Jillian Claribel Main Office [address] [place] [address] [address] [place] [address] 06/10/2022 11:37:38 06/10/2022 12:22:26 Adult health examination 319442968 Z00.00 [id number] Evelin Majano DO Main Office [address] [place] [address] [address] [place] [address] 07/05/2022 09:38:48 07/05/2022 09:55:45 Active or passive immunization 952455321 Z23 Pt tolerated injection well, was observed for 15 minutes without complaints [id number] Evelin Majano DO Main Office [address] [place] [address] [address] [place] [address] 08/05/2022 09:20:26 08/05/2022 09:56:42 Chronic hypoxemic respiratory failure 310914034 J96.11 Severe chr onic obstructive pulmonary disease 188248825 J44.9 Type 2 loreta betes mellitus without complication 174458421 E11.65 Talked to patient about diet and sugar consumptio n. A1C 6.6 Neuroendocrine tumor 255 677810 D3A.8 History of pulmonary embolus 125627491 Z86.711 Pain of in tercostal space 371337915 R07.82 Hemoptysis 93676712 R04. 2 Adult [facility] th examination 680179334 Z00.00 Depression screening 171 641029 Z13.31 [id number] Evelin Majano DO Main Office [address] [place], [place] [address] [address] [place] [address] 09/05/2022 10:58:31 09/05/2022 11:28:27 Chronic obstructive pulmonary disease 49679285 J43.2 Essential hypertension 56986766 I10 Type 2 loreta betes mellitus without complication 958070981 E11.65 Talked to patient about diet and sugar consumptio n. A1C 6.6 Severe chr onic obstructive pulmonary disease 716951578 J44.9 [id number] Evelin Majano DO Main Office [address] [place] [address] [address] [place] [address] 10/17/2022 11:23:59 10/17/2022 12:00:56 Nicotine dependence 40817885 F17.200 Severe chr onic obstructive pulmonary disease 091318510 J44.9 Carcinoid tumor 72887904 8 D3A.00 Neuroendocrine tumor 255 632401 D3A.8 [id number] Evelin Majano DO Main Office [address] [place] [address] [place] [address] 12/16/2022 12:59:24 12/16/2022 13:35:42 Essential hypertension 02440794 I10 Seborrheic keratosis 394 647553 L82.1 Carcinoid tumor of lung 938741333 D38.1 Chronic hy poxemic respiratory failure 792082295 J96.11 Severe chr onic obstructive pulmonary disease 165016209 J44.9 Tobacco de pendence in remission 214605419 F17.201 patient quit smoking 4 years ago [id number] Evelin Majano DO Main Office [address] [place] [address] [address] [facility] [place] [address] 01/16/2023 11:46:59 01/16/2023 12:15:03 Chronic hypoxemic respiratory failure 393934747 J96.11 Carcinoid tumor of lung 394463352 D38.1 History of pulmonary embolus 052729311 Z86.711 [id number] Evelin Majano DO Main Office [address] [place] [address] [address] [place] [address] 03/13/2023 11:24:50 03/13/2023 12:02:38 Essential hypertension 23724028 I10 Chronic hy poxemic respiratory failure 359729620 J96.11 Carcinoid tumor of lung 369125241 D38.1 Neuroendocrine tumor 255 374709 D3A.8 Severe chr onic obstructive pulmonary disease 024685925 J44.9 [id number] Evelin Majano DO Main Office [address] [facility],[address] [place] [address] 04/14/2023 11:17:18 04/14/2023 12:13:25 Carcinoid tumor of lung 930964919 D38.1 Chronic hy poxemic respiratory failure 976264684 J96.11 Severe chr onic obstructive pulmonary disease 775207455 J44.9 Tobacco de pendence in remission 044117323 F17.201 patient quit smoking 4 years ago Uncontroll ed type 2 diabetes mellitus 719379884 E11.65 Gastroesop hageal reflux disease 825289895 K21.9 Melanocytic nevus 647659 001 D22.9 [id number] Aliyah Burks, SILVIA Main Office [address] [facility],[address] [place] [address] 06/25/2023 08:55:59 06/25/2023 09:40:26 Hospital inpatient stay within past 30 days 5903959459 106 Z76.89 Hospital records reviewed, medication s reconciled although pt is vague about medication s. Aspiration pneumonia 422 492436 J69.0 Improved. She is at risk of this occurring again and I strongly recommende d a dental soft diet. She has contacted Dr. Leyva's office for appt for dilation of esophageal stricture. Stricture of esophagus 77671295 K22.2 Pt states she is taking famotidine up to TID. Hospital records state she was on pantoprazo le and pt states this is more effective, will send rx. Pt has contacted Dr. Leyva's office for appt. Essential hypertension 98918499 I10 Will have her return in 1 week for nursing visit check. Pt has not taken her olmesartan in 2 days; reports home BPs are WNL but she states her machine is broken. I offered referral to acceal but pt declines. Pt will return in 1 week for nursing check; if still elevated despite compliance to medication s consider adding amlodipine . [id number] Evelin Majano DO Main Office [address] [place] [address],[address] [place] [address] 07/14/2023 12:44:21 07/14/2023 13:25:05 Carcinoid tumor of lung 760706656 D38.1 Chronic hy poxemic respiratory failure 690430454 J96.11 Severe chr onic obstructive pulmonary disease 365157630 J44.9 upcoming pulm appt at [facility] Type 2 loreta betes mellitus without complication 839654306 E11.65 Esophageal dysphagia 408 64986 R13.19 Will call GI for endoscpy [id number] Evelin Majano DO Main Office [address] [place] [address] [address] [place] [address] 09/16/2023 08:35:11 09/16/2023 09:28:04 Stricture of esophagus 88522640 K22.2 Neuroendocrine tumor 255 330842 D3A.8 Uncontroll ed type 2 diabetes mellitus 043855631 E11.65 Chronic hy poxemic respiratory failure 802396263 J96.11 Aspiration pneumonia caused by regurgitated food 30594809 J69.0 Severe chr onic obstructive pulmonary disease 519151357 J43.2 upcoming pulm appt at [facility] [id number] Evelin Majano DO Main Office [address] [place] [address] [address] [place] [address] 01/21/2024 11:08:56 01/21/2024 12:06:40 Carcinoid tumor of lung 685014981 D38.1 Neuroendocrine tumor 255 677325 D3A.8 Severe chr onic obstructive pulmonary disease 133644698 J43.2 upcoming pulm appt at [facility] Type 2 loreta betes mellitus without complication 054132723 E11.65 [id number] GIO CORREIA Main Office [address] [place] [address] [address] [place] [address] 07/13/2024 11:15:59 07/13/2024 11:50:45 End stage chronic obstructive pulmonary disease 260011455 J44.9 Medically necessary for wheelchair [id number] Evelin Majano DO Main Office [address] [place] [address] [address] [place] [address] 09/20/2024 14:53:42 09/20/2024 15:59:16 Strain of muscle and/or tendon of lower leg 798886548 S86.911A Neuroendoc rine neoplasm of lung 035087963 D3A.8 Uncontroll ed type 2 diabetes mellitus 558575455 E11.65 Chronic hy poxemic respiratory failure 636973555 J96.11 Severe chr onic obstructive pulmonary disease 594556570 J44.9 upcoming pulm appt at [facility] Chronic sy stolic heart failure 113946514 I50.22 Dyspnea on exertion 6084 5006 R06.09 [id number] Evelin Majano DO Main Office [address] [place] [address],[address] [place] [address] 11/11/2024 12:34:35 11/11/2024 13:10:57 Carcinoid tumor of lung 321004140 D38.1 Chronic hy poxemic respiratory failure 922416888 J96.11 History of pulmonary embolus 604940939 Z86.711 Severe chr onic obstructive pulmonary disease 895262041 J44.9 Uncontroll ed type 2 diabetes mellitus 588667976 E11.65 Esophageal dysphagia 408 87520 R13.19 Will call GI for endoscpy [id number] Aliyah Burks NP Main Office [address] [place] [address] [address] [place] [address] 12/08/2024 08:43:02 12/08/2024 09:41:40 Post-discharge follow-up 642272902 Z09 Records reviewed, meds reconciled . Community acquired pneumonia 400249261 J18.9 Resolved. Upcoming follow up with pulmonary. Dysphagia 45871523 R13.1 0 Chronic, had EGD last year with tortuous esophagus. Pt states she will call GI on her own. Discussed soft diet although patient is adament about what she is able to eat/not eat. Nutritional anemia 55440 000 D51.9 Follows with heme/onc. States she has appt for B12 injection and labs within a week. [id number] Emerald Alanis RN Main Office [address] [place] [address],[address] [place] [address] 12/16/2024 11:56:56 12/16/2024 15:36:23 Carcinoid tumor of lung 852035984 D38.1 Severe chr onic obstructive pulmonary disease 861777863 J44.9 [id number] Evelin Majano DO Main Office [address] [place] [address],[address] [place] [address] 02/03/2025 12:14:31 02/03/2025 12:55:00 Active or passive immunization 113903357 Z23 Pt tolerated injection well, was observed for 15 minutes without complaints Chronic low back pain 27 6252662 M54.50 General ex amination of patient 673540625 Z00.01 Unintentio nal weight loss 315036990 R63.4 Chronic constipation 236 026930 K59.09 Carcinoid tumor of lung 641970188 D38.1 Health Concerns Section Related Observation LastModified by Organization Detai ls LastModified Time None Recorded Concern Status LastModified by Organization Details LastModified Time None Recorded Advance Directives Directive Y: Payers Insurance Date Sequence Insurance Name Policy Number Policy Villatoro Covered Member ID Villatoro Member ID Guarantor Name 01/30/2025 1 [place]: [employer] Glenny A Vázquez [id number] Glenny A Vázquez 02/27/2025 2 [place] [id number] Glenny A Vázquez [id number] Glenny A Vázquez 01/30/2025 3 [place] Glenny A Vázquez [id number] Glenny A Vázquez Notes Date Note Type Note Provider Name and Address Organization Details Recorded Time 09/20/2024 text/html - Glenny chan, 84-year-old female - Ankle injury from hitting a pothole, resulting in swelling and bruising; able to walk on it, not currently in pain unless pressed - Lower back pain, hip and knee joint pain - Occasional leg weakness causing near falls, ongoing for about a year - Blood pressure concerns, recently reading 149, previously 119 - Occasional chest pains, possibly heartburn, occurring two or three times - Swelling in feet, noted improvement today - Breathing difficulties, worsens with walking - Concerns about blood sugar levels, received a letter about Trulicity payment issues - Taking Mounjaro, advised to continue with it Evelin Kvng Majano, DO [address] [facility] [address], [place], [address], [facility] - [facility] 09/26/2024 20:57:05 11/11/2024 text/html - Glenny chan, 84-year-old female. - Reports sore toes, ankles, back, knees, and hip joints. - Experiences occasional loss of equilibrium but does not fall. - Has been seeing an oncologist and has an upcoming appointment at the beginning of next month. - Currently on an injectable medication, initially started on a low dose, which has been increased once. - Reports difficulty swallowing certain foods, regardless of texture, and has experienced this issue in the past. - Had an endoscopy about a year ago, which revealed esophageal strictures. - Reports numbness and purple discoloration in toes, with numbness also in ankles. - Has an appointment with Dennise in November and saw pulmonology in June. Evelin Majano, [address] [place] [address], [facility] [address], [place], [address], [place] - [facility] 11/11/2024 13:09:49 12/08/2024 text/html She is here for hospital follow up.Admitted to [facility] 11/24/24-11/27/24 with PNA. Nursing f/u on 12/01/24.PNA/COPD: On her baseline 2-3 L o2. Glenny Vázquez, 84-year-old female - Recovering alcoholic, careful with alcohol intake. - Diabetic, experiencing expected numbness and tingling, but no new symptoms. - Fractured ankle a year ago, recent fall on the same ankle. - Started physical therapy, focusing on breathing exercises. - History of low blood pressure episodes, related to salt intake adjustments. - Recent weight loss, approximately 5 pounds in the last month. - Issues with swallowing certain foods, history of esophageal stricture, last endoscopy a year ago. - Recent pneumonia and COPD exacerbation, still coughing up brown mucus. - History of anemia, receiving B12 shots and possibly requiring blood transfusions. - Concerns about potential UTI, taking cranberry pills as a precaution. Aliyah Burks, SILVIA [address] [address], [place], [address], [place] [facility] 12/08/2024 11:25:15 12/16/2024 text/html Glenny Vázquez, 84 years, female - Difficulty walking long distances, requires oxygen support- Trouble swallowing noted by previous healthcare provider- Pain in bones of both legs when touched- Patient presents to office for EKG per pulmonology Evelin Majano, [address] [facility], [facility] [address], [place], [address], [place] [facility] 12/18/2024 14:58:39 02/03/2025 text/html Annual WellnessReported bypatient.Diet and Nutrition:healthy diet Fracture Risk:no history of fractures; no recent explained fracture; no sudden unexplained fractures; no previous musculoskeletal injuries Physical Activity:recent increase in physical activity; good physical condition Additional Lifestyle Factors:no tobacco use; no alcohol intake; stopped drinking alcohol Depression Risk:never feels sad, empty, or tearful; no loss of interest in activities; no significant changes in weight; no sleep disturbances or insomnia; no agitation; no loss of energy; no feelings of worthlessness or guilt; no thoughts of suicide; no history of depression; no history of mood disorders Hearing:no loss of hearing Vision:no vision problems Glenny Vázquez, 84 years, female - Ankle pain and puffiness, not severe, similar to previous ankle issue, possibly tendonitis - Recent weight loss, down to 146 lbs, attributed to bowel movements and Mounjaro medication - Hospitalization a couple of months ago for pneumonia, similar to previous episode - Difficulty with breathing, suspected reaction to nebulizer medication - Missed last oncology appointment due to hospitalization - Potential need for endoscopy to stretch throat, affecting ability to eat - Constipation issues, relieved by prune juice, no bowel obstruction symptoms Evelin Majano, DO [address] [facility] [address], [place], [address], [place] [facility] 02/03/2025 12:49:57 OBGyn Episode No OBEpisode recorded.
== END 2025-02-28 15:21 | disposition home or self-care (01) ==
LOC: HO.HPS 14:40
PROVIDERS: PCP Family Medicine; Visit Provider Hospitalist
DX: R91.1 Solitary pulmonary nodule (principal); J18.9 Pneumonia, unspecified organism; J43.2 Centrilobular emphysema; J96.11 Chronic respiratory failure with hypoxia; J96.12 Chronic respiratory failure with hypercapnia
CPT/HCPCS: 99214; G2211

== ENCOUNTER → 2025-02-28 14:40 | Outpatient (BNVA) | payer MEDICARE, SELFPAY | PROVIDERS: PCP Family Medicine; Visit Provider Hospitalist | DX: R91.1 Solitary pulmonary nodule (principal); J43.2 Centrilobular emphysema; J18.9 Pneumonia, unspecified organism; J96.11 Chronic respiratory failure with hypoxia; J96.12 Chronic respiratory failure with hypercapnia | CPT/HCPCS: 99212 ==

== ENCOUNTER 2025-05-13 13:01 | Outpatient (REF) | payer MEDICARE, SELFPAY ==
--- NOTE | 2025-05-13 13:06 | PFT_ITS ---
Flows: FEV1: 68 % of predicted at 1.15 L FVC: 118 % of predicted at 2.60 L FEV1/FVC: 44 % Bronchodilator response: Absent Volumes: Total lung capacity: 107 % of predicted at 4.66 L Residual volume: 105 % of predicted at 2.06 L Slow vital capacity: 111 % of predicted at 2.60 L Expiratory reserve volume: 144 % of predicted at 0.80 L Diffusion capacity: Severely decreased Impression: Moderate obstructive ventilatory defect with no bronchodilator response. Decreased diffusion capacity suggests emphysema. MTDD
[2025-05-13 13:42] VITALS: PULSE 88; O2SAT 91
--- OUTSIDE RECORDS SUMMARY | 2025-05-13 14:24 | XMS_ITS | Clinical Summary ---
Author Organization [facility] Address [address] [address] Phone Care Team Providers Care Weight Reducing Technician Name Role Phone Amaury Majano DO Primary Care Provider [phone] Allergies No known active allergies Medications VENTOLIN HFA 90 mcg/actuation inhaler 2 Active alendronate (FOSAMAX) 70 MG tablet alendronate 70 mg tablet TAKE 1 TABLET BY MOUTH EVERY WEEK DIRECTED Active ELIQUIS 5 mg tablet Take 5 mg by mouth 2 (two) times a day. 2 Active BREZTRI AEROSPHERE 160-9-4.8 mcg/actuation inhaler INHALE 2 PUFFS BY MOUTH TWICE DAILY. RINSE MOUTH AND THROAT AFTER USE 2 Active TRULICITY 0.75 mg/0.5 mL subcutaneous injection 2 Active lisinopril (PRINIVIL,ZESTRI L) 2.5 MG tablet lisinopril 2.5 mg tablet TAKE 1 TABLET BY MOUTH DAILY Active omeprazole (PRILOSEC) 20 MG capsule omeprazole 20 mg capsule,delayed release TAKE 1 CAPSULE BY MOUTH TWICE DAILY Active oxyCODONE-acetam inophen (PERCOCET) 5-325 mg per tablet Take 1 tablet by mouth every 4 (four) hours as needed. 2 Active pravastatin (PRAVACHOL) 40 MG tablet pravastatin 40 mg tablet TAKE 1 TABLET BY MOUTH EVERY NIGHT AT BEDTIME Active predniSONE (DELTASONE) 20 MG tablet TAKE 2 TABLETS BY MOUTH EVERY DAY FOR 3 DAYS START 03/01 TAKE WITH FOOD OR MILK 2 Active Social History Tobacco Use Types Packs/Day Years Used Date Smoking Tobacco: Former Smokeless Tobacco: Never Comments:former heavy smoker , quit 2018 Education Answer Date Recorded Are you interested in more education? Not on dilan e 12/14/2022 Are you concerned about learning? Not on file 12/14/2022 No 12/14/2022 No 12/14/2022 Digital Access Answer Date Recorded No 01/12/2023 No 01/12/2023 No 01/12/2023 Reliable internet access at home? Not on file 01/12/2023 Device with a working camera? Not on file Comments Unknown Sex and Gender Information Value Date Recorded Sex Assigned at Not on file Legal Sex Female 2:29 PM EDT Gender Identity Not on file Sexual Orientation Not on file Last Filed Vital Signs Vital Sign Reading Time Taken Comments Blood Pressure - - Pulse - - Temperature - - Respiratory Rate - - Oxygen Saturation - - Inhaled Oxygen Concentration - - Weight 76.2 kg (168 lb) 04/29/2022 4:10 PM EDT Height 154.9 cm (5' 1 ) 04/29/2022 4:10 PM EDT Body Mass Index 31.74 04/29/2022 4:10 PM EDT Plan of Treatment Health Maintenance Due Date Last Done Comments CREATININE LEVEL 1942 POTASSIUM LEVEL 1942 DEPRESSION SCREENING 1954 OSTEOPOROSIS SCREENING INITIAL (ONE-TIME) 2007 ZOSTER VACCINES (2 of 3) 08/17/2014 06/22/2014 RSV VACCINE (1 - 1-dose 75+ series) 2017 INFLUENZA VACCINE (#1) 2025 , 05/12/2019, 06/03/2017, Additional history exists COVID-19 VACCINE ( season) 2025 06/09/2021, 09/20/2020, 08/30/2020 Adult Td,Tdap Booster 07/18/2025 07/18/2015 PNEUMOCOCCAL VACCINES (50+ years) Completed 12/24/2016, 06/30/2015 HEPATITIS A VACCINES Aged Out No long er eligible based on patient's age to complete this topic HIB VACCINES Aged Out No longer eligi ble based on patient's age to complete this topic MENINGOCOCCAL VACCINES (ACWY) Aged Out No longer eligible based on patient's age to complete this topic MENINGOCOCCAL VACCINES (B) Aged Out N o longer eligible based on patient's age to complete this topic Medical Devices Not on file Insurance MEDICARE PART A & B [place] - 2 MEDEX SUPPLEMENT MEDICARE PART A & B [place] - 2 MEDEX SUPPLEMENT MEDICARE PART A & B [place] - 2 MEDEX SUPPLEMENT MEDICARE PART A & B [place] - 2 MEDEX SUPPLEMENT MEDICARE PART A & B [facility] MEDEX SUPPLEMENT MEDICARE PART A & B [place] - 2 MEDEX SUPPLEMENT MEDICARE PART A & B [place] - 2 MEDEX SUPPLEMENT MEDICARE PART A & B [employer] CROSS MEDEX SUPPLEMENT MEDICARE PART A & B [employer] CROSS MEDEX SUPPLEMENT Care Teams Weight Reducing Technician Relationship Specialty Start Date End Date Amaury Majano DO [address] [place], [place] [id number] [email or web address] PCP - General Family Medicine 04/23/22 Additional Source Comments The information contained in this document represents components of the legal health record. It is not the complete legal health record.[facility]
== END 2025-05-13 13:02 | disposition home or self-care (01) ==
LOC: HO.RESP 13:01
PROVIDERS: PCP Family Medicine; Visit Provider Hospitalist
DX: J43.2 Centrilobular emphysema (principal)
CPT/HCPCS: 94010; 94640; 94727; 94729

== ENCOUNTER → 2025-05-13 13:06 | Outpatient (BNV) | payer MEDICARE, SELFPAY | PROVIDERS: PCP Family Medicine; Visit Provider Internal Medicine Pulmonary Disease | DX: J98.4 Other disorders of lung (principal) | CPT/HCPCS: 94060; 94727; 94729 ==

== ENCOUNTER 2025-07-04 13:10 | Outpatient (AMB) | payer MEDICARE, SELFPAY ==
[2025-07-04 13:13] VITALS: BP 108/54; PULSE 88; O2SAT 94; BMI 28.1
--- NOTE | 2025-07-04 13:13 | MHC.OFFVIS ---
Vital Signs 07/04/25 13:13 Height 5 ft 1 in Weight 148 lb 12.992 oz BMI 28.1 BP 108/54 L Blood Pressure Location Lt brachial Position Sitting Pulse 88 Pulse Source Pulse Oximeter Pulse Oximetry (%) 94 Oxygen Delivery Method Room Air Intake Visit Reasons: COPD General Repair Mechanic Required: No Accompanied by: Daughter Allergies No Known Allergies Allergy (Verified 07/04/25 13:17) HPI Comments Details: The patient is a 84 year woman with known history of carcinoid, COPD emphysema, chronic respiratory failure on oxygen who has had multiple bouts of pneumonia. He she was last admitted to [facility] back early November 2024. At that point she did have a CTA which I personally reviewed demonstrating extensive emphysema bilaterally in addition to airspace disease both in the left upper lobe and also left lower lobe. She was treated with antibiotics and she was discharged to rehab. She also had pulmonary nodules largest 1 measuring more than a cm in size. She does have history of carcinoid and she follows closely with oncology and currently on therapy for that. She has not had to know if the nodular densities are carcinoid related. In addition to this the patient does use oxygen. She does use a portable oxygen concentrator that works well for her. She is starting to walk a little bit more but otherwise she has a scooter that she uses to get around. As far as inhalers he has been on Symbicort and Spiriva for a long time. But they seem to be working well for her. She does have a nebulizer which she needs to start using for chest physical therapy and I will provide her with an Acapella valve to help her also with chest PT and mucus clearance to minimize mucus plugging and infections. The patient will have a repeat CT scan to follow-up with the nodular densities in the pneumonia prior to her follow-up. She will start azithromycin 3 times a week for chronic macrolide suppression therapy and if she still congested making mucus she will provide us with a sputum culture. The patient also will get an EKG after a few weeks off the macrolide therapy. 02/28/2025 the patient is here for a pulmonary follow-up visit. Overall she is doing better. Her cough is significantly improved. She has been tolerating the azithromycin 3 times a week. She is coming up to the another prescription this month and she can stop it after that. She will continue with respiratory medicines. If she notices the respiratory symptoms worsens she can always call me and I can send her a new script. The patient now is feeling little bit better so will go ahead and request pulmonary function studies to assess her lung capacity. As far as imaging studies she does not have to get any imaging study till the spring when she needs another CAT scan to follow up her pulmonary nodules with a history of carcinoid. Will follow-up after her PFTs in 3-4 months if she has any issues prior to that she will call for an earlier assessment. 07/04/2025 the patient is here for pulmonary follow-up visit. The patient overall has been doing well. She continues with the inhalers. She responded very well to the azithromycin 3 times a week. But when she stopped it she started getting more congestion again. She also noticed some hemoptysis. But she does use oxygen and has been having a slight epistaxis. Most likely triggered from the nose. She did have a have a CT scan over the springtime which I personally reviewed without any concerning findings. Therefore will see if we go back on the azithromycin 3 times a week and if she has any issues with hemoptysis she can always call me and we can request an x-ray. But for now I believe that is related to her nasal oxygen and dry mucous membranes causing her to have some bleeding. The patient does have already a humidifier on the oxygen concentrator. She will try some saline gel spray to see if this provides additional relief. The oxygen therapy has been affecting beneficial. The patient will have a repeat CAT scan will follow-up sometime in late spring if any issues arise she can always call for an earlier assessment. FORMERLY [facility], [facility] Medical History (Updated 12/13/24 @ 23:47 by Han Turcios MD) Chronic respiratory failure Acute on chronic respiratory failure with hypoxia and hypercapnia COPD (chronic obstructive pulmonary disease) Pneumonia Pulmonary nodule 1 cm or greater in diameter Social History Patient Tobacco Use Status: Former Tobacco user Review of Systems Const Reports fatigue ENT Reports no additional complaints Card Denies chest pain, Reports dyspnea and Reports dyspnea on exertion Resp Reports cough, Reports hemoptysis, Reports dyspnea, Reports dyspnea on exertion and Reports wheezing GI Denies abdominal pain Musc Reports no additional complaints and Reports abnormal gait Skin/Breast Denies rash Neuro Reports abnormal gait Endo Reports fatigue José/Lymph Reports no additional complaints Aller/Immun Reports wheezing Physical Exam Vital Signs: Last Vital Signs Pulse 88 07/04/25 13:13 BP 108/54 L 07/04/25 13:13 Pulse Ox 94 07/04/25 13:13 Oxygen Delivery Method Room Air 07/04/25 13:13 BMI result Body Mass Index 28.1 Const General: comfortable HEENT Head: Yes normocephalic Neck Neck: Yes supple Chest Chest palpation & inspection: normal inspection of the chest Resp Effort & Inspection: normal respiratory effort Auscultation: diminished lung sounds Cardio Heart sounds: S1 normal heart sound present and S2 normal heart sound present GI Palpation (GI): Soft to palpation Skin General skin exam: no rashes or lesions noted Extrem General: Yes clubbing and No cyanosis Assessment & Plan Assessment & Plan (1) Pulmonary nodule 1 cm or greater in diameter: Code(s): R91.1 - Solitary pulmonary nodule Category: Medical (2) Pneumonia: Code(s): J18.9 - Pneumonia, unspecified organism Category: Medical Qualifiers: Laterality: left Lung location: unspecified part of lung Pneumonia type: due to unspecified organism Qualified Code(s): J18.9 - Pneumonia, unspecified organism (3) COPD (chronic obstructive pulmonary disease): Code(s): J44.9 - Chronic obstructive pulmonary disease, unspecified Category: Medical Qualifiers: COPD type: emphysema Emphysema type: centrilobular Qualified Code(s): J43.2 - Centrilobular emphysema (4) Chronic respiratory failure: Code(s): J96.10 - Chronic respiratory failure, unspecified whether with hypoxia or hypercapnia Category: Medical Qualifiers: Respiratory failure complication: hypoxia and hypercapnia Qualified Code(s): J96.11 - Chronic respiratory failure with hypoxia; J96.12 - Chronic respiratory failure with hypercapnia Plan continue Symbicort and Spiriva MARCIE as needed Xopenex nebs BID and followed by CPT with acapella valve CT chest 12/2025 restart Azithromycin MWF, will need an EKG call if develops hemoptysis F/U 6 months Orders: Orders ECG 12 lead EKG Today J44.9 - Chronic obstructive pulmonary disease, unspecified CT chest wo IV con 12/12/25 R91.1 - Solitary pulmonary nodule Medications: New sodium chloride-aloe vera ([place] Saline Gel nasal spray) 1 spray intranasal Q8H PRN 22 mL 6RF dry nasal passages 30 days azithromycin Take 1 tablet on Friday/Friday/Friday 250 mg PO 3XW 12 tabs 4RF 28 days K21.9 - Gastro-esophageal reflux disease without esophagitis Coding Level of Care Code Est Pt Level 4 (31252) Complex EM visit Add On G2211 Diagnoses Pulmonary nodule 1 cm or greater in diameter R91.1 Pneumonia of left lung due to infectious organism, unspecified part of lung J18.9 Laterality: left Lung location: unspecified part of lung Pneumonia type: due to unspecified organism Centrilobular emphysema J43.2 COPD type: emphysema Emphysema type: centrilobular Chronic respiratory failure with hypoxia and hypercapnia J96.11; J96.12 Respiratory failure complication: hypoxia and hypercapnia Time Spent (min) 17
== END 2025-07-04 13:50 | disposition home or self-care (01) ==
LOC: HO.HPS 13:11
PROVIDERS: PCP Family Medicine; Visit Provider Hospitalist
DX: R91.1 Solitary pulmonary nodule (principal); J18.9 Pneumonia, unspecified organism; J43.2 Centrilobular emphysema; J96.11 Chronic respiratory failure with hypoxia; J96.12 Chronic respiratory failure with hypercapnia
CPT/HCPCS: 99214; G2211

== ENCOUNTER → 2025-07-04 13:10 | Outpatient (BNVA) | payer MEDICARE, SELFPAY | PROVIDERS: PCP Family Medicine; Visit Provider Hospitalist | DX: R91.1 Solitary pulmonary nodule (principal); J18.9 Pneumonia, unspecified organism; J43.9 Emphysema, unspecified; J96.11 Chronic respiratory failure with hypoxia; J96.12 Chronic respiratory failure with hypercapnia | CPT/HCPCS: 99212 ==